=== PATIENT | male | born 1950 | race Caucasian/White ===

== ENCOUNTER 2016-10-26 15:01 | Outpatient (CLI) | payer MEDICARE | END 2016-10-26 15:02 | disposition home or self-care (01) | LOC: NC 15:01 | PROVIDERS: ATTEND Family Medicine | DX: E11.9 Type 2 diabetes mellitus without complications (principal); Z71.3 Dietary counseling and surveillance ==

== ENCOUNTER 2016-11-07 11:13 | Day surgery (SDC) | payer MEDICARE ==
[2016-11-07] MEDS ORDERED: IV START KIT ONE (11:25)
[2016-11-07] MEDS ORDERED: LACTATED RINGERS 1,000 ML ONE (11:26)
[2016-11-07] MEDS ORDERED: FENTANYL 250 MCG/5 ML AMP IV PRN (11:48)
[2016-11-07] MEDS ORDERED: MIDAZOLAM HCL 5 MG/5 ML VIAL IV PRN (11:48)
[2016-11-07] MEDS ORDERED: LACTATED RINGERS 1,000 ML IV SCH (12:00)
[2016-11-07] MEDS ORDERED: FENTANYL 250 MCG/5 ML AMP ONE (12:01)
[2016-11-07] MEDS ORDERED: MIDAZOLAM HCL 5 MG/5 ML VIAL ONE (12:01)
--- NOTE | 2016-11-09 12:19 | SURGPATH ---
[facility] [address] [place] [id number] Patient Name: DIO JONES MR#: [id number] : 1950 Gender: M Specimen #: [id number] Collected: 11/07/2016 Received: 11/08/2016 Reported: 11/09/2016 Submitting Phys: JOHN PEGUERO Copy To Phys: [facility] Clinical History / Pre-Operative Diagnosis: Surveillance Specimen Source / Surgical Procedure Performed: #1 distal ascending colon polyp x2, #2 proximal ascending colon polyp Interpretation: 1, 2. DISTAL ASCENDING COLON POLYP X2, PROXIMAL ASCENDING COLON POLYP, BIOPSIES: - TUBULAR ADENOMAS Electronically Signed Out Clyde Terry M.D. Gross Description: The specimen is received in two formalin filled containers, labeled with the patient's name. 1. The specimen is labeled "distal ascending colon polyp" and consists of two irregularly shaped fragment(s) of rehman tissue aggregating to 0.6 x 0.3 x 0.2 cm. The specimen is entirely submitted in cassette 1A. 2. The specimen is labeled "proximal ascending colon polyp" and consists of one irregularly shaped fragment(s) of rehman tissue aggregating to 0.5 x 0.3 x 0.2 cm. The specimen is entirely submitted in cassette 2A. TAMMIE Butler Microscopic Description: 1, 2. Levels reveal colonic mucosa surfaced by tubular glands with focal adenomatous features. High grade dysplasia and malignancy are not present. 1: 11779 2: 36610 D12.2
== END 2016-11-07 13:24 | disposition home or self-care (01) ==
LOC: SDC 11:13
PROVIDERS: ATTEND Family Medicine
PROC: 0DBK8ZX Excision of Ascending Colon, Via Natural or Artificial Opening Endoscopic, Diagnostic (ICD-10-PCS; principal; 2016-11-07)
DX: Z12.11 Encounter for screening for malignant neoplasm of colon (principal); D12.2 Benign neoplasm of ascending colon; R73.9 Hyperglycemia, unspecified; H91.93 Unspecified hearing loss, bilateral; K21.9 Gastro-esophageal reflux disease without esophagitis; E78.00 Pure hypercholesterolemia, unspecified
CPT/HCPCS: 45380; J3010; J2250; J7120

== ENCOUNTER 2016-12-12 15:00 | Outpatient (CLI) | payer MEDICARE | END 2016-12-12 15:01 | disposition home or self-care (01) | LOC: NC 15:00 | PROVIDERS: ATTEND Family Medicine | DX: E11.9 Type 2 diabetes mellitus without complications (principal); Z71.3 Dietary counseling and surveillance; Z68.31 Body mass index [BMI] 31.0-31.9, adult ==

== ENCOUNTER 2017-01-01 19:39 | Emergency (ER) | payer MEDICARE ==
[2017-01-01] MEDS ORDERED: ONDANSETRON 4 MG/2ML 2 ML VIAL ONE (20:03)
[2017-01-01] MEDS ORDERED: KETOROLAC TROMETHAMINE 15 MG/ML VIAL ONE (20:04)
[2017-01-01 20:22] LABS: ABSOLUTE NEUTROPHIL COUNT 7.2 K/mm3 (1.8-7.7); BASO % 0.4 % (0.2-1.0); EOS # 0.1 (0.0-0.5); EOS % 1.1 % (0.9-2.9); HEMATOCRIT 45.7 % (32.0-52.0); IMM NEUT% 0.5 % (0-1); LYMPH # 0.6 (1.0-4.8); LYMPH % 7.6 % (15-45); MEAN CELL VOLUME 93.6 fl (80.0-94.0); MEAN CORPUSCULAR HEMOGLOBIN 30.7 pg (27.0-31.0); MEAN CORPUSCULAR HGB CONC 32.8 g/dl (33.0-37.0); MEAN PLATELET VOLUME 11.5 fl (7.4-10.4); MONO # 0.5 (0.0-0.8); MONO % 5.3 % (4-12); NEUT % 85.1 % (43-75); PLATELET COUNT 162 K/mm3 (130-400); RED CELL DISTRIBUTION WIDTH 13.3 % (11.5-14.5)
[2017-01-01 20:34] LABS: CALCIUM 9.8 mg/dL (8.6-10.3)
--- NOTE | 2017-01-01 20:41 | CT ---
Name: DIO JONES Exam: Noncontrast renal stone CT Comparison: 06/10/2013 Clinical History: Left flank pain. History of kidney stones. Procedure: Helical CT using multidetector technique was applied to the abdomen and pelvis without contrast. Sagittal, axial and coronal reconstructions were obtained. An automated dose reduction technique was used to minimize patient radiation dose. Findings: CT abdomen (noncontrast): Heart is nonenlarged. There is no pericardial effusion. Noncontrast images of the liver, gallbladder, pancreas, spleen, adrenal glands, aorta, IVC and portal vein are normal. There are at least 5, 5 mm and less nonobstructing calculi within the right kidney. There are at least 7 4 mm and less nonobstructing left renal calculi. There are 2 18 mm and less hypodensities within the right kidney which are increasing in size. Cysts are suspected. Similar 14 mm structure is noted on the left. Nonemergent ultrasound follow-up of these lesions is recommended. There is atherosclerosis of normal caliber aorta. IVC and portal vein calibers are normal. There is a small moderate size hiatal hernia. Small bowel and colon are unremarkable. There is no free air free fluid or adenopathy. Bilateral pars defects are identified at L5 and there is a grade 1 anterolisthesis of L5 with respect L4 and S1. CT pelvis (noncontrast): Bladder is within normal limits. There are calcifications within a mildly prominent prostate. Seminal vesicles are normal. Right ureter is unremarkable. Within the distal left ureter just above the ureterovesical junction, there is a 4.5 mm calculus. Left ureter is mildly dilated and there is moderate left hydronephrosis. The appendix and small bowel are normal. There is minimal distal colonic diverticulosis without diverticulitis. There are features of prior inguinal hernia surgery. There is no free air, free fluid or suspicious adenopathy. Impression: 1. 4.5 mm calculus slightly above the left ureterovesical junction causing mild ureterectasis and moderate left hydronephrosis. 2. Multiple small bilateral nonobstructing renal calculi 3. Multiple 1.8 cm less enlarging hypodensities within the kidneys. Cysts are favored. Nonemergent follow-up ultrasound is recommended 4. Normal appendix 5. Minimal distal colonic diverticulosis 6. Bilateral pars defects at L5 7. Small to moderate size hiatal hernia Note: The above report was uploaded to [facility]'s electronic medical records system at 2037 hours.
== END 2017-01-01 21:07 | disposition home or self-care (01) ==
LOC: ED 19:39
DX: N20.0 Calculus of kidney (principal); I10 Essential (primary) hypertension; N40.0 Benign prostatic hyperplasia without lower urinary tract symptoms